=== PATIENT | female | born 1955 | race Caucasian/White ===

== ENCOUNTER → 2022-11-30 | Outpatient (CLI) | payer MEDICARE, OTHER ==
--- NOTE | 2022-11-30 16:00 | Diagnostic Imaging Report ---
CLINICAL INDICATION: Patient with dizziness. COMPARISON: None. EXAM: Real-time ultrasound carotid Doppler duplex imaging is performed bilaterally with multiple real-time grayscale images obtained in various projections. Additional spectral analysis and color Doppler duple images were also obtained. Peak systolic velocity, ICA/CCA peak systolic ratio, spectral analysis, and vascular morphology are studied. FINDINGS: ARTERY VELOCITY Right Left CCA 0.69 m/s 0.60 m/s ICA 0.64 m/s 0.69 m/s ECA 0.70 m/s 0.87 m/s ICA/CCA 0.9 1.2 VERT.ART Antegrade Antegrade There is no significant atherosclerotic disease. IMPRESSION: There is no grayscale or Doppler evidence of significant vascular stenosis. Dictated by: Dictated on workstation # [id number]
== END ==
LOC: RAD 14:19
PROVIDERS: ATTEND Nurse Practitioner Family
DX: I10 Essential (primary) hypertension (principal); R42 Dizziness and giddiness; E66.3 Overweight; Z87.891 Personal history of nicotine dependence
CPT/HCPCS: 93880

== ENCOUNTER → 2022-12-11 | Outpatient (CLI) | payer MEDICARE ==
--- NOTE | 2022-12-11 16:30 | Diagnostic Imaging Report ---
Indication: Shortness of breath and dizziness. Time of Exam: 1:08 PM No prior studies are available for comparison. The heart size is normal. There appears to be minimal infiltrate in the right base partially obscuring the right hemidiaphragm. Otherwise, the lungs are clear. No effusion or pneumothorax is identified. IMPRESSION: Minimal right basilar infiltrate or atelectasis. Dictated by: Dictated on workstation # [id number]
== END ==
LOC: RAD 12:30
PROVIDERS: ATTEND Nurse Practitioner Family
DX: R06.02 Shortness of breath (principal); R42 Dizziness and giddiness
CPT/HCPCS: 71046